=== PATIENT | male | born 1955 | race Caucasian/White ===

== ENCOUNTER 2019-10-10 10:30 | Emergency (ER) | payer MEDICARE, OTHER ==
--- NOTE | 2019-10-10 11:31 | EDM.PDOC ---
ED HPI GENERAL MEDICAL PROBLEM - General Chief Complaint: General Stated Complaint: NOT FEELING WELL Time Seen by Provider: 10/10/19 10:50 Source of Information: Reports: Patient History Limitations: Reports: No Limitations - History of Present Illness INITIAL COMMENTS - FREE TEXT/NARRATIVE: pt presents to the ED with history of cramping in his hands, feet, legs over the past several weeks he's noticed more during the evening. pt states he takes an extra potassium pill and symptoms improve. also history of intermittent lightheadedness the past 2-3 nights, worsening with position changes and improving with rest coinciding pedal edema worsening through the day and improving at night. pt denies SOB, fever, chills, cough, chest pain, vision changes. - Related Data Allergies Allergy/AdvReac Type Severity Reaction Status Date / Time acetaminophen Allergy Cannot Verified 10/10/19 11:05 [From Darvocet-N] Remember ciprofloxacin Allergy Cannot Verified 10/10/19 11:05 Remember erythromycin base Allergy Cannot Verified 10/10/19 11:05 Remember morphine Allergy Cannot Verified 10/10/19 11:05 Remember naproxen [From Naprosyn] Allergy Cannot Verified 10/10/19 11:05 Remember Penicillins Allergy Cannot Verified 10/10/19 11:05 Remember propoxyphene Allergy Cannot Verified 10/10/19 11:05 [From Darvocet-N] Remember Home Meds: Home Meds Albuterol [Ventolin HFA] 2 puff IH Q6HR PRN 10/10/19 [History] Aspirin 81 mg PO BEDTIME 10/10/19 [History] Chlorthalidone 25 mg PO DAILY 10/10/19 [History] Diltiazem HCl [Diltiazem 24Hr Cd] 120 mg PO DAILY 10/10/19 [History] Docusate Sodium [Colace] 100 mg PO BID PRN 10/10/19 [History] Isosorbide Mononitrate [Isosorbide Mononitrate ER] 30 mg PO DAILY 10/10/19 [ History] Omeprazole 40 mg PO DAILY 10/10/19 [History] Potassium Citrate [Potassium Citrate ER] 20 meq PO DAILY 10/10/19 [History] Simvastatin 20 mg PO BEDTIME 10/10/19 [History] Terazosin [Hytrin] 5 mg PO BEDTIME 10/10/19 [History] diphenhydrAMINE [Benadryl] 25 mg PO Q6H PRN 10/10/19 [History] hydrALAZINE [Apresoline] 10 mg PO Q8H 10/10/19 [History] Past Medical History HEENT History: Reports: Hard of Hearing Cardiovascular History: Reports: High Cholesterol, Hypertension Other Cardiovascular History: single cardiac stent about 5 years ago Respiratory History: Reports: Asthma Gastrointestinal History: Reports: GERD Social & Family History - Family History Family Medical History: Noncontributory - Tobacco Use Smoking Status *Q: Never Smoker Second Hand Smoke Exposure: No - Caffeine Use Caffeine Use: Reports: Coffee - Recreational Drug Use Recreational Drug Use: No ED ROS GENERAL - Review of Systems Review Of Systems: See Below (complete ROS performed and negative except as noted above) ED EXAM, GENERAL - Physical Exam Exam: See Below Exam Limited By: No Limitations General Appearance: Alert, WD/WN, No Apparent Distress Eye Exam: Bilateral Eye: EOMI, PERRL Ears: Normal External Exam Head: Atraumatic, Normocephalic Neck: Non-Tender, Full Range of Motion Respiratory/Chest: No Respiratory Distress, Lungs Clear, Normal Breath Sounds, No Accessory Muscle Use Cardiovascular: Normal Peripheral Pulses, Regular Rate, Rhythm, No JVD, No Murmur, No Rub, Other (pedal edema +2) Peripheral Pulses: 2+: Radial (L), Radial (R), Posterior Tibial (L), Posterior Tibial (R) Extremities: Normal Inspection, Non-Tender Neurological: Alert, Oriented, CN II-XII Intact, Normal Cognition, Normal Gait Psychiatric: Normal Affect, Normal Mood Skin Exam: Warm, Dry, Intact EKG INTERPRETATION EKG Date: 10/10/19 Time: 11:26 Rhythm: NSR [place]: Normal P-Wave: Present QRS: Normal ST-T: Normal QT: Normal EKG Interpretation Comments: no q wave or delta waves noted Course - Vital Signs Last Recorded V/S: Last Vital Signs Temp 98.3 F 10/10/19 10:50 Pulse 71 10/10/19 10:50 Resp 16 10/10/19 10:50 BP 128/83 10/10/19 10:50 Pulse Ox 97 10/10/19 10:50 - Orders/Labs/Meds Orders: Active Orders 24 hr Category Date Time Status EKG Documentation Completion [RC] ASDIRECTED Care 10/10/19 11:22 Active Labs: Laboratory Tests 10/10/19 10/10/19 Range/Units 11:40 11:50 WBC 7.1 (4.0-11.0) K/uL RBC 4.28 L (4.50-6.50) M/uL Hgb 14.3 (13.0-18.0) g/dL Hct 39.8 L (40.0-54.0) % MCV 93 (76-96) fL MCH 33.4 H (27.0-32.0) pg MCHC 35.9 H (31.0-35.0) g/dL RDW 13.3 (11.0-16.0) % Plt Count 256 (150-400) K/uL MPV 10.8 H (6.0-10.0) fL Neut % (Auto) 75.7 H (45.0-70.0) % Lymph % (Auto) 11.6 L (20.0-40.0) % [place] % (Auto) 10.5 H (3.0-10.0) % Eos % (Auto) 1.4 (1.0-5.0) % Baso % (Auto) 0.8 H (0.0-0.5) % Neut # (Auto) 5.36 (2.00-7.50) K/uL Lymph # (Auto) 0.82 L (1.50-4.00) K/uL [place] # (Auto) 0.74 (0.20-0.80) K/uL Eos # (Auto) 0.10 (0.04-0.40) K/uL Baso # (Auto) 0.06 (0.02-0.10) K/uL Sodium 141 (136-145) mmol/L Potassium 3.2 L (3.5-5.1) mmol/L Chloride 103 (98-107) mmol/L Carbon Dioxide 29.2 (21.0-32.0) mmol/L Anion Gap 12.0 (5.0-15.0) mmol/L BUN 20 (8-26) mg/dL Creatinine 1.21 (0.70-1.30) mg/dL Est Cr Clr Drug Dosing 66.80 mL/min Estimated GFR (MDRD) > 60 (>60) MLS/MIN BUN/Creatinine Ratio 16.5 (6-25) Glucose 115 H (74-100) mg/dL Calcium 7.9 L (8.5-10.1) mg/dL Total Bilirubin 0.3 (0.0-1.0) mg/dL AST 23 (15-37) U/L ALT 39 (12-78) U/L Alkaline Phosphatase 95 (46-116) U/L Total Protein 7.0 (6.4-8.2) g/dL Albumin 3.6 (3.4-5.0) g/dL Globulin 3.4 (2.2-4.2) g/dL Albumin/Globulin Ratio 1.1 (0.8-2.0) Departure - Departure Time of Disposition: 12:45 Disposition: Home, Self-Care 01 Condition: Good Clinical Impression: Hypokalemia, Postural hypotension - Discharge Information *PRESCRIPTION DRUG MONITORING PROGRAM REVIEWED*: Not Applicable *COPY OF PRESCRIPTION DRUG MONITORING REPORT IN PATIENT EITAN: Not Applicable Instructions: Hypokalemia Referrals: PCP,None [Primary Care Provider] - Forms: ED Department Discharge Additional Instructions: increase your potassium to 20mEq twice daily follow up with your regular doctor as soon as possible for a blood pressure recheck and further recommendations whether to reduce other blood pressure medications. Sepsis Event Note (ED) - Evaluation Sepsis Screening Result: No Definite Risk - Focused Exam Vital Signs: Vital Signs Temp Pulse Resp BP Pulse Ox 10/10/19 10:50 98.3 F 71 16 128/83 97 - My Orders Last 24 Hours: My Active Orders 10/10/19 11:22 EKG Documentation Completion [RC] ASDIRECTED - Assessment/Plan Last 24 Hours: My Active Orders 10/10/19 11:22 EKG Documentation Completion [RC] ASDIRECTED Assessment:: hypokalemia postural hypotension Plan: double current potassium from 20mEq qd to 20mEq BID position changes from lying to sitting and sitting to standing need to be over 1 -2 minutes to reduce symptoms. pt will call PCP and request review of current b/p meds for appropriateness considering current symptoms and control of his b/p.
== END 2019-10-10 12:43 | disposition home or self-care (01) ==
LOC: LB.ED 10:30
DX: E87.6 Hypokalemia (principal); I95.1 Orthostatic hypotension; E78.00 Pure hypercholesterolemia, unspecified; I10 Essential (primary) hypertension; J45.909 Unspecified asthma, uncomplicated; K21.9 Gastro-esophageal reflux disease without esophagitis; Z88.6 Allergy status to analgesic agent; Z88.1 Allergy status to other antibiotic agents; Z88.5 Allergy status to narcotic agent; Z88.0 Allergy status to penicillin; Z79.899 Other long term (current) drug therapy
CPT/HCPCS: 36415; 80053; 85025; 93005; 99283-25

== ENCOUNTER 2020-02-08 23:42 | Emergency (ER) | payer MEDICARE ==
[2020-02-09 00:01] VITALS: BP 134/56; PULSE 68
[2020-02-09] MEDS: Ketorolac 60 MG/2 ML SDV IM ONE (00:59)
--- NOTE | 2020-02-09 01:08 | EDM.PDOC ---
ED HPI GENERAL MEDICAL PROBLEM - General Chief Complaint: Lower Extremity Injury/Pain Stated Complaint: Ankle Injury Time Seen by Provider: 02/09/20 00:30 Source of Information: Reports: Patient, Family History Limitations: Reports: No Limitations - History of Present Illness INITIAL COMMENTS - FREE TEXT/NARRATIVE: Patient is a 64 y/o male who presents with right lateral ankle that happened suddenly while he was walking. He states he heard a "pop" and had difficulty ambulating or bearing weight. NO fall and no numbness/tingling. Right Ankle Pain Score (Numeric/FACES): 7 - Related Data Allergies Allergy/AdvReac Type Severity Reaction Status Date / Time acetaminophen Allergy Cannot Verified 02/08/20 23:53 [From Darvocet-N] Remember ciprofloxacin Allergy Cannot Verified 02/08/20 23:53 Remember erythromycin base Allergy Cannot Verified 02/08/20 23:53 Remember morphine Allergy Cannot Verified 02/08/20 23:53 Remember naproxen [From Naprosyn] Allergy Cannot Verified 02/08/20 23:53 Remember Penicillins Allergy Cannot Verified 02/08/20 23:53 Remember propoxyphene Allergy Cannot Verified 02/08/20 23:53 [From Darvocet-N] Remember Home Meds: Home Meds Albuterol [Ventolin HFA] 2 puff IH Q6HR PRN 10/10/19 [History] Aspirin 81 mg PO BEDTIME 10/10/19 [History] Chlorthalidone 25 mg PO DAILY 10/10/19 [History] Diltiazem HCl [Diltiazem 24Hr Cd] 120 mg PO DAILY 10/10/19 [History] Docusate Sodium [Colace] 100 mg PO BID PRN 10/10/19 [History] Isosorbide Mononitrate [Isosorbide Mononitrate ER] 30 mg PO DAILY 10/10/19 [History] Omeprazole 40 mg PO DAILY 10/10/19 [History] Potassium Citrate [Potassium Citrate ER] 20 meq PO DAILY 10/10/19 [History] Simvastatin 20 mg PO BEDTIME 10/10/19 [History] Terazosin [Hytrin] 5 mg PO BEDTIME 10/10/19 [History] diphenhydrAMINE [Benadryl] 25 mg PO Q6H PRN 10/10/19 [History] hydrALAZINE [Apresoline] 10 mg PO Q8H 10/10/19 [History] Past Medical History HEENT History: Reports: Hard of Hearing Cardiovascular History: Reports: High Cholesterol, Hypertension Other Cardiovascular History: single cardiac stent about 5 years ago Respiratory History: Reports: Asthma Gastrointestinal History: Reports: GERD Musculoskeletal History: Reports: Other (See Below) - Past Surgical History Musculoskeletal Surgical History: Reports: Knee Replacement Social & Family History - Family History Family Medical History: Noncontributory - Caffeine Use Caffeine Use: Reports: Coffee - Recreational Drug Use Recreational Drug Use: No Drug Use in Last 12 Months: No Review of Systems - Review of Systems Review Of Systems: See Below Constitutional: Reports: No Symptoms Musculoskeletal: Reports: Joint Pain, Joint Swelling Skin: Reports: No Symptoms Neurological: Reports: No Symptoms ED EXAM, GENERAL - Physical Exam Exam: See Below Exam Limited By: No Limitations General Appearance: Alert, No Apparent Distress, Obese Extremities: Limited Range of Motion, Other (right lateral malleolus swelling; non-tender; limited range of motion due to pain) Neurological: Alert, Oriented, No Motor/Sensory Deficits Skin Exam: Warm, Dry, Intact, Normal Color, No Rash Course - Vital Signs Text/Narrative:: No fracture seen on Xray. Patient given toradol 60 mg IM, boot, and crutches. Follow up with Ortho in 1-2 weeks. Last Recorded V/S: Last Vital Signs Temp 35.9 C L 02/08/20 23:53 Pulse 68 02/08/20 23:53 Resp 20 02/08/20 23:53 BP 134/56 L 02/08/20 23:53 Pulse Ox 98 02/08/20 23:53 - Orders/Labs/Meds Orders: Active Orders 24 hr Category Date Time Status Ankle Min 3V Rt [CR] Stat Exams 02/09/20 00:12 Taken Meds: Medications Discontinued Medications Generic Name Dose Route Start Last Admin Trade Name Freq PRN Reason Stop Dose Admin Ketorolac Tromethamine 60 mg 02/09/20 00:56 02/09/20 00:59 Toradol IM 02/09/20 00:57 60 mg ONETIME ONE Administration Departure - Departure Time of Disposition: 13:10 Disposition: Home, Self-Care 01 Condition: Good Clinical Impression: Right ankle sprain Qualifiers: Encounter type: initial encounter Involved ligament of ankle: unspecified ligament Qualified Code(s): S93.401A - Sprain of unspecified ligament of right ankle, initial encounter - Discharge Information *PRESCRIPTION DRUG MONITORING PROGRAM REVIEWED*: Not Applicable *COPY OF PRESCRIPTION DRUG MONITORING REPORT IN PATIENT EITAN: Not Applicable Instructions: Ankle Sprain, [id number] Sepsis Event Note (ED) - Evaluation Sepsis Screening Result: No Definite Risk - Focused Exam Vital Signs: Vital Signs Temp Pulse Resp BP Pulse Ox 02/08/20 23:53 35.9 C L 68 20 134/56 L 98 - My Orders Last 24 Hours: My Active Orders 02/09/20 00:12 Ankle Min 3V Rt [CR] Stat - Assessment/Plan Last 24 Hours: My Active Orders 02/09/20 00:12 Ankle Min 3V Rt [CR] Stat
--- NOTE | 2020-02-09 14:44 | CR ---
CLINICAL DATA: Ankle injury. RIGHT ANKLE, 09 FEBRUARY 2020: There is mild soft tissue swelling adjacent to the ankle joint. No acute fracture or dislocation. No lytic or blastic bone lesions. 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 There are plantar and posterior calcaneal spurs. Job: [id number] [facility]
== END 2020-02-09 01:40 | disposition home or self-care (01) ==
LOC: LB.ED 23:42
DX: S93.401A Sprain of unspecified ligament of right ankle, initial encounter (principal); I10 Essential (primary) hypertension; E78.00 Pure hypercholesterolemia, unspecified; J45.909 Unspecified asthma, uncomplicated; K21.9 Gastro-esophageal reflux disease without esophagitis; Z88.8 Allergy status to other drugs, medicaments and biological substances; Z88.6 Allergy status to analgesic agent; Z88.1 Allergy status to other antibiotic agents; Z88.5 Allergy status to narcotic agent; Z88.0 Allergy status to penicillin; Z79.82 Long term (current) use of aspirin; Z79.899 Other long term (current) drug therapy; X58.XXXA Exposure to other specified factors, initial encounter; Y93.01 Activity, walking, marching and hiking
CPT/HCPCS: 73610-RT; 96372; 99283; J1885

== ENCOUNTER 2020-03-21 17:50 | Emergency (ER) | payer MEDICARE ==
[2020-03-21] MEDS ORDERED: Cyclobenzaprine 10 MG Tab ONE (18:30)
--- NOTE | 2020-03-21 18:43 | EDM.PDOC ---
ED HPI GENERAL MEDICAL PROBLEM - General Chief Complaint: General Stated Complaint: LEFT HIP PAIN Time Seen by Provider: 03/21/20 18:10 Source of Information: Reports: Patient History Limitations: Reports: No Limitations - History of Present Illness INITIAL COMMENTS - FREE TEXT/NARRATIVE: pt presents to the ER with left hip pain that has been ongoing for the past week. pt states pain feels like "a tightness and a sharpness" from his left hip that radaites down towards his knee. pain improves with walking most of the times, but sometimes worsens with certain activities. also worsens with standing still or walking slowly for prolonged periods. pt denies numbness, fever, loss of ROM. pain worsens with deep palpation of left hip as well as palpation of his lateral quadracepts muscle. pt has not established care since moving to area. pain is not constant, he denies swelling of his leg, and pain is not worse or better at any certain time of day. Onset: Gradual Treatments [employer]: Reports: Acetaminophen (which sometimes work. pt states allergies to NSAIDS) Left Hip Pain Score (Numeric/FACES): 7 - Related Data Allergies Allergy/AdvReac Type Severity Reaction Status Date / Time acetaminophen Allergy Cannot Verified 02/08/20 23:53 [From Darvocet-N] Remember ciprofloxacin Allergy Cannot Verified 02/08/20 23:53 Remember erythromycin base Allergy Cannot Verified 02/08/20 23:53 Remember morphine Allergy Cannot Verified 02/08/20 23:53 Remember naproxen [From Naprosyn] Allergy Cannot Verified 02/08/20 23:53 Remember Penicillins Allergy Cannot Verified 02/08/20 23:53 Remember propoxyphene Allergy Cannot Verified 02/08/20 23:53 [From Darvocet-N] Remember Home Meds: Home Meds Albuterol [Ventolin HFA] 2 puff IH Q6HR PRN 10/10/19 [History] Aspirin 81 mg PO BEDTIME 10/10/19 [History] Chlorthalidone 25 mg PO DAILY 10/10/19 [History] Diltiazem HCl [Diltiazem 24Hr Cd] 120 mg PO DAILY 10/10/19 [History] Docusate Sodium [Colace] 100 mg PO BID PRN 10/10/19 [History] Isosorbide Mononitrate [Isosorbide Mononitrate ER] 30 mg PO DAILY 10/10/19 [History] Omeprazole 40 mg PO DAILY 10/10/19 [History] Potassium Citrate [Potassium Citrate ER] 20 meq PO DAILY 10/10/19 [History] Simvastatin 20 mg PO BEDTIME 10/10/19 [History] Terazosin [Hytrin] 5 mg PO BEDTIME 10/10/19 [History] diphenhydrAMINE [Benadryl] 25 mg PO Q6H PRN 10/10/19 [History] hydrALAZINE [Apresoline] 10 mg PO Q8H 10/10/19 [History] Past Medical History HEENT History: Reports: Hard of Hearing Cardiovascular History: Reports: High Cholesterol, Hypertension Other Cardiovascular History: single cardiac stent about 5 years ago Respiratory History: Reports: Asthma Gastrointestinal History: Reports: GERD Musculoskeletal History: Reports: Other (See Below) - Past Surgical History Musculoskeletal Surgical History: Reports: Knee Replacement Social & Family History - Family History Family Medical History: No Pertinent Family History - Caffeine Use Caffeine Use: Reports: Coffee - Recreational Drug Use Recreational Drug Use: No ED ROS GENERAL - Review of Systems Review Of Systems: Comprehensive ROS is negative, except as noted in HPI. ED EXAM, GENERAL - Physical Exam Exam: See Below Exam Limited By: No Limitations General Appearance: Alert, WD/WN, No Apparent Distress Respiratory/Chest: No Respiratory Distress, Normal Breath Sounds, No Accessory Muscle Use Peripheral Pulses: 2+: Radial (L), Radial (R), Posterior Tibial (L), Posterior Tibial (R) Back Exam: Normal Inspection, Full Range of Motion Extremities: Normal Range of Motion, No Pedal Edema (TTP of lateral left hip, tenderness follows to left lateral quadracepts to distal femur. ) Neurological: Alert, Oriented, Normal Cognition, Normal Reflexes, No Motor/Sensory Deficits, Abnormal Gait (abnormal gait initially, after 2-3 strides, gait normalizes and is steady.) Psychiatric: Normal Affect, Normal Mood Skin Exam: Warm, Dry, Intact, Normal Color, No Rash Course - Vital Signs Last Recorded V/S: Last Vital Signs Temp 97.3 F 03/21/20 18:09 Pulse 66 03/21/20 18:09 Resp 18 03/21/20 18:09 BP 148/74 H 03/21/20 18:09 Pulse Ox 97 03/21/20 18:09 Departure - Departure Time of Disposition: 18:47 Disposition: Home, Self-Care 01 Condition: Good Clinical Impression: Muscle spasm of left lower extremity - Discharge Information *PRESCRIPTION DRUG MONITORING PROGRAM REVIEWED*: Not Applicable *COPY OF PRESCRIPTION DRUG MONITORING REPORT IN PATIENT EITAN: Not Applicable Instructions: Hip Exercises-SportsMed, Hip Pain Forms: ED Department Discharge Additional Instructions: Discharge home. Work on stretching the hips as discussed in the ER. Take more frequent breaks, walking. Flexeril 10mg 1 tablet by mouth 3 times a day for hip spasms. Take when not driving. Tylenol 1000mg by mouth 4 times a day for pain. Increase fruits and vegetables. Increase fluids, low sugar Gatorade. Follow up with primary provider as soon as possible. Sepsis Event Note (ED) - Evaluation Sepsis Screening Result: No Definite Risk - Focused Exam Vital Signs: Vital Signs Temp Pulse Resp BP Pulse Ox 03/21/20 18:09 97.3 F 66 18 148/74 H 97 - Problem List & Annotations (1) Muscle spasm of left lower extremity SNOMED Code(s): 99832032, [id number] Code(s): M62.838 - OTHER MUSCLE SPASM Status: Acute - Problem List Review Problem List Initiated/Reviewed/Updated: Yes - Assessment/Plan Assessment:: assessment: muscle spasm of left lower extremity. plan: tylenol 1000mg qid, continue home remedies of analgesic creams, stretch often as discussed, walk as often as you are able, take flexeril as prescribed a nd stretch. do not take this medication if you have to work, operate heavy machinery. follow up in clinic [facility] to establish care. differentials considered: bursitis, rheumatoid arthritis, DVT.
== END 2020-03-21 18:40 | disposition home or self-care (01) ==
LOC: LB.ED 17:50
DX: M62.838 Other muscle spasm (principal); I10 Essential (primary) hypertension; E78.00 Pure hypercholesterolemia, unspecified; J45.909 Unspecified asthma, uncomplicated; K21.9 Gastro-esophageal reflux disease without esophagitis; Z88.8 Allergy status to other drugs, medicaments and biological substances; Z88.5 Allergy status to narcotic agent; Z88.0 Allergy status to penicillin; Z88.6 Allergy status to analgesic agent; Z88.1 Allergy status to other antibiotic agents; Z79.82 Long term (current) use of aspirin; Z79.899 Other long term (current) drug therapy
CPT/HCPCS: 99283; A9270-GY

== ENCOUNTER 2020-09-19 21:21 | Emergency (ER) | payer MEDICARE ==
[2020-09-19] MEDS ORDERED: metroNIDAZOLE 500 MG Tab ONE (21:30)
--- NOTE | 2020-09-19 22:45 | EDM.PDOC ---
ED HPI GENERAL MEDICAL PROBLEM - General Chief Complaint: Abdominal Pain Stated Complaint: dizziness Time Seen by Provider: 09/19/20 22:10 Source of Information: Reports: Patient, Family History Limitations: Reports: No Limitations - History of Present Illness INITIAL COMMENTS - FREE TEXT/NARRATIVE: patient presented to the ER with a c/o abdominal pain for the last 2 weeks that got worse 3-4 days ago. Upper abdomen and to the right. not related to food, but worse with movement. no nausea or emesis. Reports changes in his BM - used to be loose stool but over the last 2 days to became normal. Reports that he is on omeprazole and Pepto bismuth - but it's not helping. Had a colonoscopy done 4-5 years ago that showed e/o UC and polyps. Denies blood in the stool. No fever or chills. no change in appetite or weight. Last EGD was 5-6 years ago. Patient reports his pain as 5-6 most of the times, but jumps to 10 when he moves. no h/o abdominal surgeries Onset: Gradual Duration: Week(s): (4) Location: Reports: Abdomen Quality: Reports: Ache, Dull Improves with: Reports: None Worsens with: Reports: Movement Associated Symptoms: Reports: No Other Symptoms Upper Abdomen Pain Score (Numeric/FACES): 5 - Related Data Allergies Allergy/AdvReac Type Severity Reaction Status Date / Time acetaminophen Allergy Cannot Verified 02/08/20 23:53 [From Darvocet-N] Remember ciprofloxacin Allergy Cannot Verified 02/08/20 23:53 Remember erythromycin base Allergy Cannot Verified 02/08/20 23:53 Remember morphine Allergy Cannot Verified 02/08/20 23:53 Remember naproxen [From Naprosyn] Allergy Cannot Verified 02/08/20 23:53 Remember Penicillins Allergy Cannot Verified 02/08/20 23:53 Remember propoxyphene Allergy Cannot Verified 02/08/20 23:53 [From Darvocet-N] Remember Home Meds: Home Meds Albuterol [Ventolin HFA] 2 puff IH Q6HR PRN 10/10/19 [History] Aspirin 81 mg PO BEDTIME 10/10/19 [History] Chlorthalidone 25 mg PO DAILY 10/10/19 [History] Diltiazem HCl [Diltiazem 24Hr Cd] 120 mg PO DAILY 10/10/19 [History] Docusate Sodium [Colace] 100 mg PO BID PRN 10/10/19 [History] Isosorbide Mononitrate [Isosorbide Mononitrate ER] 30 mg PO DAILY 10/10/19 [History] Omeprazole 40 mg PO DAILY 10/10/19 [History] Potassium Citrate [Potassium Citrate ER] 20 meq PO DAILY 10/10/19 [History] Simvastatin 20 mg PO BEDTIME 10/10/19 [History] Terazosin [Hytrin] 5 mg PO BEDTIME 10/10/19 [History] diphenhydrAMINE [Benadryl] 25 mg PO Q6H PRN 10/10/19 [History] hydrALAZINE [Apresoline] 10 mg PO Q8H 10/10/19 [History] metroNIDAZOLE [Flagyl] 500 mg PO Q12H #10 tab 09/20/20 [Rx] Past Medical History HEENT History: Reports: Hard of Hearing Cardiovascular History: Reports: High Cholesterol, Hypertension Other Cardiovascular History: single cardiac stent about 5 years ago Respiratory History: Reports: Asthma Gastrointestinal History: Reports: GERD Musculoskeletal History: Reports: Other (See Below) - Past Surgical History Musculoskeletal Surgical History: Reports: Knee Replacement Social & Family History - Family History Family Medical History: No Pertinent Family History - Caffeine Use Caffeine Use: Reports: Coffee ED ROS GENERAL - Review of Systems Review Of Systems: See Below Constitutional: Reports: No Symptoms HEENT: Reports: No Symptoms Respiratory: Reports: No Symptoms Cardiovascular: Reports: No Symptoms GI/Abdominal: Reports: Abdominal Pain : Reports: No Symptoms Musculoskeletal: Reports: Back Pain Skin: Reports: No Symptoms Neurological: Reports: No Symptoms ED EXAM, GI/ABD - Physical Exam Exam: See Below Exam Limited By: No Limitations General Appearance: Alert, WD/WN, No Apparent Distress Eyes: Bilateral: EOMI Head: Atraumatic Neck: Normal Inspection Respiratory/Chest: No Respiratory Distress, Lungs Clear Cardiovascular: Normal Peripheral Pulses, Regular Rate, Rhythm GI/Abdominal Exam: Normal Bowel Sounds, Soft, Tender (epigastric and RUQ), Other (obese) Back Exam: Normal Inspection Extremities: Normal Inspection, Normal Range of Motion Neurological: Alert, Oriented, CN II-XII Intact Psychiatric: Normal Affect #1 Interpretation Rhythm: NSR Rate (Beats/Min): 57 [place]: Normal P-Wave: Present QRS: Normal ST-T: Normal QT: Normal Course - Vital Signs Last Recorded V/S: Last Vital Signs Temp 36.3 C 09/19/20 22:25 Pulse 63 09/19/20 22:25 Resp 20 09/19/20 22:25 BP 154/74 H 09/19/20 22:25 Pulse Ox 95 09/19/20 22:25 - Orders/Labs/Meds Orders: Active Orders 24 hr Category Date Time Status EKG Documentation Completion [RC] ASDIRECTED Care 09/19/20 21:44 Active Abdomen Pelvis wo Cont [CT] Stat Exams 09/19/20 22:39 Ordered Labs: Laboratory Tests 09/19/20 09/19/20 09/19/20 Range/Units 22:00 22:00 22:00 WBC 8.5 (4.0-11.0) K/uL RBC 3.94 L (4.50-6.50) M/uL Hgb 13.0 (13.0-18.0) g/dL Hct 37.2 L (40.0-54.0) % MCV 94 (76-96) fL MCH 33.0 H (27.0-32.0) pg MCHC 34.9 (31.0-35.0) g/dL RDW 13.0 (11.0-16.0) % Plt Count 225 (150-400) K/uL MPV 11.2 H (6.0-10.0) fL Neut % (Auto) 74.3 H (45.0-70.0) % Lymph % (Auto) 13.0 L (20.0-40.0) % [place] % (Auto) 10.8 H (3.0-10.0) % Eos % (Auto) 1.3 (1.0-5.0) % Baso % (Auto) 0.6 H (0.0-0.5) % Neut # (Auto) 6.29 (2.00-7.50) K/uL Lymph # (Auto) 1.10 L (1.50-4.00) K/uL Gregg # (Auto) 0.91 H (0.20-0.80) K/uL Eos # (Auto) 0.11 (0.04-0.40) K/uL Baso # (Auto) 0.05 (0.02-0.10) K/uL Sodium 145 (136-145) mmol/L Potassium 3.2 L (3.5-5.1) mmol/L Chloride 106 (98-107) mmol/L Carbon Dioxide 27.8 (21.0-32.0) mmol/L Anion Gap 14.4 (5.0-15.0) mmol/L BUN 20 (8-26) mg/dL Creatinine 1.58 H D (0.70-1.30) mg/dL Est Cr Clr Drug Dosing 50.48 mL/min Estimated GFR (MDRD) 44 L (>60) MLS/MIN BUN/Creatinine Ratio 12.7 (6-25) Glucose 110 H (74-100) mg/dL Calcium 7.8 L (8.5-10.1) mg/dL Total Bilirubin 0.4 (0.0-1.0) mg/dL AST 26 (15-37) U/L ALT 42 (12-78) U/L Alkaline Phosphatase 96 (46-116) U/L Troponin I < 0.017 (0.000-0.060) ng/mL B-Natriuretic Peptide 147 H (0-125) pg/mL Total Protein 6.5 (6.4-8.2) g/dL Albumin 3.4 (3.4-5.0) g/dL Globulin 3.1 (2.2-4.2) g/dL Albumin/Globulin Ratio 1.1 (0.8-2.0) Lipase 136 (73-393) U/L Urine Color Urine Appearance (CLEAR) Urine pH (5.0-8.0) Ur Specific [place] (1.003-1.030) Urine Protein (NEGATIVE) mg/dL Urine Glucose (UA) (NEGATIVE) mg/dL Urine Ketones (NEGATIVE) mg/dL Urine Occult Blood (NEGATIVE) Urine Nitrite (NEGATIVE) Urine Bilirubin (NEGATIVE) Urine Urobilinogen (0.2-1.0) E.U./dL Ur Leukocyte Esterase (NEGATIVE) Urine RBC /HPF Urine WBC /HPF Ur Squamous Epith Cells /HPF 09/19/20 Range/Units 22:04 WBC (4.0-11.0) K/uL RBC (4.50-6.50) M/uL Hgb (13.0-18.0) g/dL Hct (40.0-54.0) % MCV (76-96) fL MCH (27.0-32.0) pg MCHC (31.0-35.0) g/dL RDW (11.0-16.0) % Plt Count (150-400) K/uL MPV (6.0-10.0) fL Neut % (Auto) (45.0-70.0) % Lymph % (Auto) (20.0-40.0) % [place] % (Auto) (3.0-10.0) % Eos % (Auto) (1.0-5.0) % Baso % (Auto) (0.0-0.5) % Neut # (Auto) (2.00-7.50) K/uL Lymph # (Auto) (1.50-4.00) K/uL [place] # (Auto) (0.20-0.80) K/uL Eos # (Auto) (0.04-0.40) K/uL Baso # (Auto) (0.02-0.10) K/uL Sodium (136-145) mmol/L Potassium (3.5-5.1) mmol/L Chloride (98-107) mmol/L Carbon Dioxide (21.0-32.0) mmol/L Anion Gap (5.0-15.0) mmol/L BUN (8-26) mg/dL Creatinine (0.70-1.30) mg/dL Est Cr Clr Drug Dosing mL/min Estimated GFR (MDRD) (>60) MLS/MIN BUN/Creatinine Ratio (6-25) Glucose (74-100) mg/dL Calcium (8.5-10.1) mg/dL Total Bilirubin (0.0-1.0) mg/dL AST (15-37) U/L ALT (12-78) U/L Alkaline Phosphatase (46-116) U/L Troponin I (0.000-0.060) ng/mL B-Natriuretic Peptide (0-125) pg/mL Total Protein (6.4-8.2) g/dL Albumin (3.4-5.0) g/dL Globulin (2.2-4.2) g/dL Albumin/Globulin Ratio (0.8-2.0) Lipase (73-393) U/L Urine Color Yellow Urine Appearance Clear (CLEAR) Urine pH 6.0 (5.0-8.0) Ur Specific [place] >= 1.030 (1.003-1.030) Urine Protein 30 H (NEGATIVE) mg/dL Urine Glucose (UA) Negative (NEGATIVE) mg/dL Urine Ketones Negative (NEGATIVE) mg/dL Urine Occult Blood Negative (NEGATIVE) Urine Nitrite Negative (NEGATIVE) Urine Bilirubin Negative (NEGATIVE) Urine Urobilinogen 1.0 (0.2-1.0) E.U./dL Ur Leukocyte Esterase Negative (NEGATIVE) Urine RBC Not seen /HPF Urine WBC Not seen /HPF Ur Squamous Epith Cells Few /HPF Meds: Medications Discontinued Medications Generic Name Dose Route Start Last Admin Trade Name Bassam PRN Reason Stop Dose Admin Sodium Chloride 1,000 mls @ 999 mls/hr 09/19/20 22:39 09/19/20 23:04 Normal Saline IV 09/19/20 23:39 999 mls/hr .BOLUS ONE Administration Metronidazole Confirm 09/20/20 00:13 Metronidazole 500 Mg Tab Administered 09/20/20 00:14 Dose 2,000 mg .ROUTE .STK-MED ONE - Re-Assessments/Exams Free Text/Narrative Re-Assessment/Exam: 09/19/20 22:45 vitals - no fever or tachycardia labs were ordered - including CBC, CMP, TROP, lipase and UA. Significant for elevation in Cr which is new - last Cr was normal 2 weeks ago. IVF was given CT abd/pelv was ordered - final read pending - but no e/o acute pathology on prelim read. no SBO. Departure - Departure Time of Disposition: 00:11 Disposition: Home, Self-Care 01 Condition: Good Clinical Impression: Hypokalemia, Abdominal pain - Discharge Information *PRESCRIPTION DRUG MONITORING PROGRAM REVIEWED*: Not Applicable *COPY OF PRESCRIPTION DRUG MONITORING REPORT IN PATIENT EITAN: Not Applicable Prescriptions: metroNIDAZOLE [Flagyl] 500 mg PO Q12H #10 tab Instructions: Abdominal or Pelvic Ultrasound, Metronidazole tablets or capsules Referrals: PCP,None [Primary Care Provider] - Forms: ED Department Discharge, ED Return to Work/School Form Additional Instructions: Followup in the clinic next week to followup with the kidney function results. You will be called with the ultrasound appt for . Flagyl 7 days daily and eat yogurt but make sure there is at least 6 days a week. Sepsis Event Note (ED) - Evaluation Sepsis Screening Result: No Definite Risk - Focused Exam Vital Signs: Vital Signs Temp Pulse Resp BP Pulse Ox 09/19/20 22:25 36.3 C 63 20 154/74 H 95 - Problem List & Annotations (1) Abdominal pain SNOMED Code(s): 61255979 Code(s): R10.9 - UNSPECIFIED ABDOMINAL PAIN Status: Acute Priority: Low Current Visit: Yes Qualifiers: Abdominal location: right upper quadrant Qualified Code(s): R10.11 - Right upper quadrant pain (2) Hypokalemia SNOMED Code(s): 99360308 Code(s): E87.6 - HYPOKALEMIA Status: Acute Priority: Low Current Visit: Yes (3) GILMAR (acute kidney injury) SNOMED Code(s): 58629143, 06666498 Code(s): N17.9 - ACUTE KIDNEY FAILURE, UNSPECIFIED Status: Acute Priority: Low Current Visit: Yes - Problem List Review Problem List Initiated/Reviewed/Updated: Yes - My Orders Last 24 Hours: My Active Orders 09/19/20 21:44 EKG Documentation Completion [RC] ASDIRECTED 09/19/20 22:39 Abdomen Pelvis wo Cont [CT] Stat - Assessment/Plan Last 24 Hours: My Active Orders 09/19/20 21:44 EKG Documentation Completion [RC] ASDIRECTED 09/19/20 22:39 Abdomen Pelvis wo Cont [CT] Stat Plan: - return on for US abdomen - start taking flagyl BID for 7 days - increase fluids intake - repeat labs next to check on kidney function
[2020-09-19] MEDS: Sodium Chloride 0.9% 1,000 ML IV ONE (23:04)
[2020-09-20] MEDS ORDERED: metroNIDAZOLE 500 MG Tab ONE (00:13)
--- NOTE | 2020-09-22 09:37 | CT ---
Date of Service: 09/19/20 Clinical Data: RUQ pain UNENHANCED ABDOMEN AND PELVIC CT: Multislice acquisition through the abdomen and pelvis without IV or oral contrast was performed. No priors. There are minimal atelectatic changes noted in both lung bases. The lung bases are otherwise clear. The heart size is normal. There is a small pericardial effusion. The unenhanced liver appears normal. The gallbladder appears normal. The spleen appears normal. The pancreas appears normal. The right adrenal appears normal. There is a 3.2 cm low density lesion in the left adrenal which is most likely benign. No nephrocalcinosis or nephrolithiasis. No hydronephrosis or hydroureter. There is mild perinephric fat stranding bilaterally. This is probably related to aging. There is a small amount of fluid within the bladder. It appears normal. The prostate is mildly enlarged. No evidence of appendicitis. No free air. No free fluid. No dilated loops of bowel. No adenopathy. No aortic aneurysm. There is mild diverticulosis of the sigmoid colon. No evidence of diverticulitis. There is degenerative disk disease at multiple levels in the lower thoracic and lumbar spine. No other significant findings. [id number] [facility]
== END 2020-09-20 00:12 | disposition home or self-care (01) ==
LOC: LB.ED 21:21
DX: R10.13 Epigastric pain (principal); R10.11 Right upper quadrant pain; E87.6 Hypokalemia; K21.9 Gastro-esophageal reflux disease without esophagitis; E78.00 Pure hypercholesterolemia, unspecified; I10 Essential (primary) hypertension; Z88.1 Allergy status to other antibiotic agents; Z88.6 Allergy status to analgesic agent; Z88.5 Allergy status to narcotic agent; Z88.8 Allergy status to other drugs, medicaments and biological substances; Z88.0 Allergy status to penicillin; Z79.899 Other long term (current) drug therapy
CPT/HCPCS: 36415; 74176; 80053; 81001; 83690; 83880; 84484; 85025; 93005; 99284-25; A9270-GY; J7030

== ENCOUNTER 2020-09-20 05:31 | Emergency (ER) | payer MEDICARE ==
--- NOTE | 2020-09-20 06:03 | EDM.PDOC ---
ED HPI GENERAL MEDICAL PROBLEM - General Chief Complaint: Gastrointestinal Problem Stated Complaint: Abdominal pain Time Seen by Provider: 09/20/20 05:45 Source of Information: Reports: Patient, Family History Limitations: Reports: No Limitations - History of Present Illness INITIAL COMMENTS - FREE TEXT/NARRATIVE: patient returned to the ER due to abdominal pain.; Was seen in the ER earlier for the same reason. Blood tests and CT abd WNL. h/o gastritis - for which he is Tums and Maalox. Reports that he was doing well after he was discharged from the ER earlier,, but started to experience same symptoms later on. He also admits that upon arrival to the ER, he released some gas which resolved his symptoms - Related Data Allergies Allergy/AdvReac Type Severity Reaction Status Date / Time acetaminophen Allergy Cannot Verified 09/20/20 06:25 [From Darvocet-N] Remember ciprofloxacin Allergy Cannot Verified 09/20/20 06:25 Remember erythromycin base Allergy Cannot Verified 09/20/20 06:25 Remember morphine Allergy Cannot Verified 09/20/20 06:25 Remember naproxen [From Naprosyn] Allergy Cannot Verified 09/20/20 06:25 Remember Penicillins Allergy Cannot Verified 09/20/20 06:25 Remember propoxyphene Allergy Cannot Verified 09/20/20 06:25 [From Darvocet-N] Remember Home Meds: Home Meds Albuterol [Ventolin HFA] 2 puff IH Q6HR PRN 10/10/19 [History] Aspirin 81 mg PO BEDTIME 10/10/19 [History] Chlorthalidone 25 mg PO DAILY 10/10/19 [History] Diltiazem HCl [Diltiazem 24Hr Cd] 120 mg PO DAILY 10/10/19 [History] Docusate Sodium [Colace] 100 mg PO BID PRN 10/10/19 [History] Isosorbide Mononitrate [Isosorbide Mononitrate ER] 30 mg PO DAILY 10/10/19 [History] Omeprazole 40 mg PO DAILY 10/10/19 [History] Potassium Citrate [Potassium Citrate ER] 20 meq PO DAILY 10/10/19 [History] Simvastatin 20 mg PO BEDTIME 10/10/19 [History] Terazosin [Hytrin] 5 mg PO BEDTIME 10/10/19 [History] diphenhydrAMINE [Benadryl] 25 mg PO Q6H PRN 10/10/19 [History] hydrALAZINE [Apresoline] 10 mg PO Q8H 10/10/19 [History] metroNIDAZOLE [Flagyl] 500 mg PO Q12H #10 tab 09/20/20 [Rx] Past Medical History HEENT History: Reports: Hard of Hearing Cardiovascular History: Reports: High Cholesterol, Hypertension Other Cardiovascular History: single cardiac stent about 5 years ago Respiratory History: Reports: Asthma Gastrointestinal History: Reports: GERD Musculoskeletal History: Reports: Other (See Below) - Past Surgical History Musculoskeletal Surgical History: Reports: Knee Replacement Social & Family History - Family History Family Medical History: No Pertinent Family History - Caffeine Use Caffeine Use: Reports: Coffee ED ROS GENERAL - Review of Systems Review Of Systems: See Below Constitutional: Reports: No Symptoms HEENT: Reports: No Symptoms Respiratory: Reports: No Symptoms Cardiovascular: Reports: No Symptoms Endocrine: Reports: No Symptoms GI/Abdominal: Reports: Abdominal Pain ED EXAM, GI/ABD - Physical Exam Exam: See Below Exam Limited By: No Limitations General Appearance: Alert, WD/WN, No Apparent Distress Eyes: Bilateral: EOMI Neck: Normal Inspection Respiratory/Chest: No Respiratory Distress, Lungs Clear Cardiovascular: Normal Peripheral Pulses GI/Abdominal Exam: Normal Bowel Sounds, Soft, Non-Tender Extremities: Normal Inspection Neurological: Alert, Oriented, Normal Cognition, Normal Gait Psychiatric: Normal Affect Course - Vital Signs Last Recorded V/S: Last Vital Signs Temp Pulse 58 L 09/20/20 05:53 Resp 16 09/20/20 05:53 BP 146/76 H 09/20/20 05:53 Pulse Ox 100 09/20/20 05:53 - Orders/Labs/Meds Labs: Laboratory Tests 09/20/20 09/20/20 09/20/20 Range/Units 06:20 06:20 06:20 ESR 24 H (0-20) mm/hr Sodium 143 (136-145) mmol/L Potassium 3.4 L (3.5-5.1) mmol/L Chloride 105 (98-107) mmol/L Carbon Dioxide 28.2 (21.0-32.0) mmol/L Anion Gap 13.2 (5.0-15.0) mmol/L BUN 22 (8-26) mg/dL Creatinine 1.13 D (0.70-1.30) mg/dL Est Cr Clr Drug Dosing TNP Estimated GFR (MDRD) > 60 (>60) MLS/MIN BUN/Creatinine Ratio 19.5 (6-25) Glucose 113 H (74-100) mg/dL Calcium 7.9 L (8.5-10.1) mg/dL Phosphorus 1.8 L (2.5-4.9) mg/dL Magnesium 1.7 L (1.8-2.4) mg/dL Troponin I 0.017 (0.000-0.060) ng/mL C-Reactive Protein 4.8 H (0.0-3.0) mg/L SARS-CoV-2 RNA (ALYCIA) (NEGATIVE) 09/20/20 Range/Units 06:20 ESR (0-20) mm/hr Sodium (136-145) mmol/L Potassium (3.5-5.1) mmol/L Chloride (98-107) mmol/L Carbon Dioxide (21.0-32.0) mmol/L Anion Gap (5.0-15.0) mmol/L BUN (8-26) mg/dL Creatinine (0.70-1.30) mg/dL Est Cr Clr Drug Dosing Estimated GFR (MDRD) (>60) MLS/MIN BUN/Creatinine Ratio (6-25) Glucose (74-100) mg/dL Calcium (8.5-10.1) mg/dL Phosphorus (2.5-4.9) mg/dL Magnesium (1.8-2.4) mg/dL Troponin I (0.000-0.060) ng/mL C-Reactive Protein (0.0-3.0) mg/L SARS-CoV-2 RNA (ALYCIA) Negative (NEGATIVE) Meds: Medications Discontinued Medications Generic Name Dose Route Start Last Admin Trade Name Freq PRN Reason Stop Dose Admin Al Hydroxide/Mg Hydroxide 30 ml 09/20/20 06:08 09/20/20 06:59 Gi Cocktail Oral Solution 30 Ml PO 09/20/20 06:09 30 ml ONETIME ONE Administration Sodium Chloride 1,000 mls @ 500 mls/hr 09/20/20 06:15 09/20/20 06:06 Normal Saline IV 500 mls/hr ASDIRECTED MALIHA Administration Potassium Chloride 50 mls @ 50 mls/hr 09/20/20 07:00 09/20/20 06:58 Kcl In Water 10 Meq/50 Ml IV 09/20/20 07:59 50 mls/hr NOW ONE Administration Potassium Chloride Confirm 09/20/20 06:54 09/20/20 06:59 Kcl In Water 10 Meq/50 Ml Administered 09/20/20 06:55 Not Given Dose 50 mls @ as directed .ROUTE .STK-MED ONE Potassium Phosphate 20 mmole/ 256.6667 mls @ 85.556 mls/hr 09/20/20 08:45 Sodium Chloride IV ONETIME MALIHA Magnesium Oxide 400 mg 09/20/20 08:39 09/20/20 09:00 Magnesium Oxide 400 Mg Tab PO 09/20/20 08:40 400 mg ONETIME ONE Administration Ondansetron HCl Confirm 09/20/20 05:59 09/20/20 06:59 Ondansetron 4 Mg Tab.Dis Administered 09/20/20 06:00 Not Given Dose 4 mg .ROUTE .STK-MED ONE Ondansetron HCl 4 mg 09/20/20 05:51 09/20/20 06:06 Ondansetron 4 Mg Tab.Dis PO 09/20/20 05:52 4 mg ONETIME ONE Administration Potassium Chloride 10 meq 09/20/20 06:05 Potassium Chloride 40 Meq/20 Ml Sdv IV 09/20/20 06:06 NOW STA - Re-Assessments/Exams Free Text/Narrative Re-Assessment/Exam: GI cocktail was given - felt immediate relief labs were checked - significant for low potassium and phosphorous - those were replaced by IV and PO route. reports feeling much better - no more symptoms Departure - Departure Time of Disposition: 09:15 Disposition: Home, Self-Care 01 Condition: Good Clinical Impression: Hypokalemia Abdominal pain Qualifiers: Abdominal location: right upper quadrant Qualified Code(s): R10.11 - Right upper quadrant pain - Discharge Information *PRESCRIPTION DRUG MONITORING PROGRAM REVIEWED*: Not Applicable *COPY OF PRESCRIPTION DRUG MONITORING REPORT IN PATIENT EITAN: Not Applicable Referrals: PCP,None [Primary Care Provider] - Forms: ED Department Discharge Additional Instructions: Discharge instructions as given on previous visit. 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 Call with any questions. - Problem List & Annotations (1) GILMAR (acute kidney injury) SNOMED Code(s): 07894621, 54639465 Code(s): N17.9 - ACUTE KIDNEY FAILURE, UNSPECIFIED Status: Acute Priority: Low (2) Abdominal pain SNOMED Code(s): 25327836 Code(s): R10.9 - UNSPECIFIED ABDOMINAL PAIN Status: Acute Priority: Low Qualifiers: Abdominal location: right upper quadrant Qualified Code(s): R10.11 - Right upper quadrant pain (3) Hypokalemia SNOMED Code(s): 75840249 Code(s): E87.6 - HYPOKALEMIA Status: Acute Priority: Low - Problem List Review Problem List Initiated/Reviewed/Updated: Yes - Assessment/Plan Plan: - increase fluids intake - resume your PPI - take K and P04 supplements as prescribed - follow up with your PCP in 3-7 days - return in 3 days for labs and US abdomen
[2020-09-20] MEDS ORDERED: Potassium Chloride 40 MEQ/20 ML SDV IV STA (06:05)
[2020-09-20] MEDS: Sodium Chloride 0.9% 1,000 ML IV SCH (06:06)
[2020-09-20] MEDS: Ondansetron 4 MG Tab.DIS PO ONE (06:06)
[2020-09-20] MEDS: Potassium Chloride Riders 50 ML IV ONE (06:58)
[2020-09-20] MEDS: Potassium Chloride Riders 50 ML ONE (06:59)
[2020-09-20] MEDS: Ondansetron 4 MG Tab.DIS ONE (06:59)
[2020-09-20] MEDS: GI Cocktail Oral Solution 30 ML PO ONE (06:59)
[2020-09-20] MEDS ORDERED: Potassium Phosphates 20 MMOLE in Sodium Chloride 0.9% 250 ML IV SCH (08:45)
[2020-09-20] MEDS: Magnesium Oxide 400 MG Tab PO ONE (09:00)
== END 2020-09-20 09:48 | disposition home or self-care (01) ==
LOC: LB.ED 05:31
DX: R10.11 Right upper quadrant pain (principal); E87.6 Hypokalemia; E78.00 Pure hypercholesterolemia, unspecified; I10 Essential (primary) hypertension; K21.9 Gastro-esophageal reflux disease without esophagitis; Z79.82 Long term (current) use of aspirin; Z79.899 Other long term (current) drug therapy; Z88.0 Allergy status to penicillin; Z88.5 Allergy status to narcotic agent; Z88.1 Allergy status to other antibiotic agents; Z88.6 Allergy status to analgesic agent; Z20.822 Contact with and (suspected) exposure to COVID-19
CPT/HCPCS: 36415; 80048; 83735; 84100; 84484; 85651; 86140; 96365; 99284; A9270; J3480; J7030; U0002; 99283

== ENCOUNTER 2020-10-23 08:50 | Day surgery (SDC) | payer MEDICARE ==
[~2020-10-23 08:50] MED LIST: Metoclopramide 10 MG/2 ML SDV IV PRN
[2020-10-23] MEDS: Sodium Chloride 0.9% 1,000 ML IV SCH (09:29)
[2020-10-23] MEDS ORDERED: Midazolam 1 MG/ML 2 ML SDV ONE (10:45)
[2020-10-23] MEDS ORDERED: Propofol 200 MG/20 ML SDV ONE ×2 (10:45)
--- NOTE | 2020-10-23 19:05 | OR ---
DATE OF OPERATION: 10/23/2020 SURGEON: Justus Winn MD PREOPERATIVE DIAGNOSIS: Abdominal pain, change in bowel habits. POSTOPERATIVE DIAGNOSIS: Abdominal pain, change in bowel habits. PROCEDURE: EGD with biopsy and colonoscopy with biopsy. ANESTHESIA: MAC. ESTIMATED BLOOD LOSS: Minimal. COMPLICATIONS: None. INDICATION FOR THE PROCEDURE: The patient is a 65-year-old male, here today for EGD and colonoscopy. He complains of abdominal pains for the past 2 years, getting worse now. He is taking omeprazole, but it does not appear to help. He has had diverticulitis in the past, last episode about 10 years ago. He states history of ulcerative colitis, although unable to find further documentation in his chart. He is here today for EGD and colonoscopy. DESCRIPTION OF PROCEDURE: Informed consent was obtained with the patient. The patient was taken to the operating room and placed on table in left lateral decubitus position. Monitored anesthesia care was administered. Esophagogastroscope first advanced through the oral cavity and directed toward the duodenum. Duodenum was reached and appeared normal. Gastric antrum appeared normal. Cold forceps biopsy was taken for H pylori testing. Retroflexion performed in the stomach was also otherwise unremarkable. Esophagogastroscope was then slowly withdrawn. The GE junction was unremarkable. The remainder of the esophagus was unremarkable. The scope was then fully removed. We then turned our attention to his perineum. Digital rectal exam was performed and was normal. Colonoscope was then advanced through the anus and directed toward the cecum. Cecum was reached and identified by appendiceal orifice and ileocecal valve. Colonoscope was then slowly withdrawn. No polyps identified. He did have some mild what appeared to be inflammatory mucosal changes throughout the colon. Biopsy of this was taken for histology. Otherwise, no masses, no polyps. A few small diverticula were also noted in the sigmoid and descending colon. The rectum was also otherwise unremarkable. Colonoscope was then withdrawn. FINDINGS: We will follow up on H pylori testing as well as colonic mucosal biopsies. RECOMMENDATIONS: As above pending biopsy results. ORLIN/JOAN /[id number]
== END 2020-10-23 12:17 | disposition home or self-care (01) ==
LOC: LB.SDS 08:50
PROVIDERS: ATTEND Surgery
DX: K29.50 Unspecified chronic gastritis without bleeding (principal); K57.30 Diverticulosis of large intestine without perforation or abscess without bleeding; K52.9 Noninfective gastroenteritis and colitis, unspecified; I10 Essential (primary) hypertension; J45.909 Unspecified asthma, uncomplicated; Z87.19 Personal history of other diseases of the digestive system; Z88.0 Allergy status to penicillin; Z88.8 Allergy status to other drugs, medicaments and biological substances
CPT/HCPCS: J2250; J2704; J7030

== ENCOUNTER 2021-04-10 19:34 | Emergency (ER) | payer MEDICARE ==
[2021-04-10] MEDS ORDERED: predniSONE 10 MG Tab ONE (21:00)
[2021-04-10] MEDS ORDERED: Albuterol 0.083% 2.5 MG/3 ML Neb Soln ONE (21:00)
[2021-04-10] MEDS ORDERED: Azithromycin 250 MG Tab ONE (21:00)
--- NOTE | 2021-04-10 21:10 | EDM.PDOC ---
ED HPI GENERAL MEDICAL PROBLEM - General Chief Complaint: Respiratory Problem Stated Complaint: respiratory Time Seen by Provider: 04/10/21 20:40 Source of Information: Reports: Patient, RN Notes Reviewed History Limitations: Reports: No Limitations - History of Present Illness INITIAL COMMENTS - FREE TEXT/NARRATIVE: This patient presents to the emergency department for evaluation of respiratory illness. He states he has been sick for the last 3 weeks but it is gotten more worse in the last week. He has had increasing cough and difficulty breathing. He has not had a fever with this illness. He states his appetite is unchanged. He has some right ear pain and sore throat a couple days ago as well. He has been using his albuterol inhaler which he states does help for a short time but then he starts coughing again. He denies other concerns or complaints. - Related Data Allergies Allergy/AdvReac Type Severity Reaction Status Date / Time ciprofloxacin Allergy Severe Airway Verified 04/10/21 20:11 Tightness morphine Allergy Severe Airway Verified 04/10/21 20:11 Tightness Penicillins Allergy Severe Airway Verified 04/10/21 20:11 Tightness naproxen [From Naprosyn] Allergy Intermediate Swelling Verified 04/10/21 20:11 acetaminophen Allergy Cannot Verified 04/10/21 20:11 [From Darvocet-N] Remember Beta-Blockers Allergy Other Verified 04/10/21 20:11 (Beta-Adrenergic Bloc erythromycin base Allergy Cannot Verified 04/10/21 20:11 Remember lisinopril Allergy Cannot Verified 04/10/21 20:11 Remember propoxyphene Allergy Cannot Verified 04/10/21 20:11 [From Darvocet-N] Remember [id number]-[id number] Reductase AdvReac Mild Joint Pain Verified 04/10/21 20:11 Inhibitor [Qwdemgh-Mfl-Vkh Reductase Inhibitor] Home Meds: Home Meds Albuterol [Ventolin HFA] 2 puff IH Q6HR PRN 10/10/19 [History] Aspirin 81 mg PO BEDTIME 10/10/19 [History] Chlorthalidone 25 mg PO DAILY 10/10/19 [History] Isosorbide Mononitrate [Isosorbide Mononitrate ER] 30 mg PO DAILY 10/10/19 [History] Omeprazole 40 mg PO DAILY 10/10/19 [History] Potassium Citrate [Potassium Citrate ER] 20 meq PO BID 10/10/19 [History] Terazosin [Hytrin] 5 mg PO BEDTIME 10/10/19 [History] diphenhydrAMINE [Benadryl] 25 mg PO Q6H PRN 10/10/19 [History] hydrALAZINE [Apresoline] 20 mg PO BID 10/10/19 [History] Acetaminophen [Tylenol Arthritis] 650 mg PO BID 10/22/20 [History] Cetirizine [ZyrTEC] 1 tab PO ASDIRECTED PRN 10/22/20 [History] Nitroglycerin 0.4 mg SL ASDIRECTED PRN 10/22/20 [History] Past Medical History HEENT History: Reports: Hard of Hearing Other HEENT History: retinal occlusion Cardiovascular History: Reports: High Cholesterol, Hypertension Other Cardiovascular History: single cardiac stent about 5 years ago Respiratory History: Reports: Asthma Gastrointestinal History: Reports: GERD Other Gastrointestinal History: ulcerative colitis Other Genitourinary History: right kidney nodule Musculoskeletal History: Reports: Other (See Below) Neurological History: Reports: Concussion - Past Surgical History Musculoskeletal Surgical History: Reports: Knee Replacement Social & Family History - Family History Family Medical History: No Pertinent Family History Cardiac: Reports: Other (See Below) Other Cardiac Family History: enlarged heart Other Oncologic Family History: father of cancer - Caffeine Use Caffeine Use: Reports: Coffee ED ROS GENERAL - Review of Systems Review Of Systems: Comprehensive ROS is negative, except as noted in HPI. ED EXAM, GENERAL - Physical Exam Exam: See Below Exam Limited By: No Limitations General Appearance: Alert, No Apparent Distress Eye Exam: Bilateral Eye: Normal Inspection Ears: Normal External Exam Ear Exam: Right Ear: TM Dull, TM Red, TM Bulging, Left Ear: Canal Normal, TM normal Nose: Normal Inspection, Other (Moderate amount of thick drainage) Throat/Mouth: Normal Inspection, No Airway Compromise, Other (Posterior pharynx) Head: Atraumatic ( erythematous), Normocephalic Neck: Normal Inspection, Full Range of Motion Respiratory/Chest: No Respiratory Distress, Other (Chest symmetric with mild intercostal retractions. Expiratory wheezes in all chung.) Neurological: Alert, Oriented Psychiatric: Normal Affect Skin Exam: Warm, Dry, Intact Course - Orders/Labs/Meds Labs: Laboratory Tests 04/10/21 Range/Units 19:53 SARS-CoV-2 RNA (ALYCIA) Negative (NEGATIVE) - Re-Assessments/Exams Free Text/Narrative Re-Assessment/Exam: This patient presents to the emergency department for evaluation of cough and shortness of breath. He is also congested. History and clinical findings are most consistent with bronchitis. He does appear well and nontoxic. There is no evidence of respiratory distress. He has a normal oxygen saturation with normal work of breathing after the neb. Chest x-ray is not indicated considering there is no tachycardia and a respiratory rate of less than 24 and he is afebrile. He has no hypoxia. He did get 1 DuoNeb in the emergency department and he had improvement in his breath sounds and a resolution of the mild retractions. I will start him on Zithromax for right otitis and bronchitis, prednisone 40 mg a day, and nebs every 4-6 hours. I discussed using either the neb or the inhaler on a more regular basis in the next few days. Also discussed the need to seek immediate care for any difficulty breathing, chest pain, high fever, or any other new concerns. He should be seen by his primary care provider in a week if he is not better. The patient was stable at the time of discharge. 04/10/21 21:08 Departure - Departure Time of Disposition: 21:15 Disposition: Home, Self-Care 01 Condition: Fair Clinical Impression: Bronchitis, Otitis media - Discharge Information Instructions: Otitis Media, Adult, [id number], Acute Bronchitis, Adult, [id number]
== END 2021-04-10 21:10 | disposition home or self-care (01) ==
LOC: LB.ED 19:34
DX: J40 Bronchitis, not specified as acute or chronic (principal); H66.91 Otitis media, unspecified, right ear; E78.00 Pure hypercholesterolemia, unspecified; I10 Essential (primary) hypertension; K21.9 Gastro-esophageal reflux disease without esophagitis; Z95.5 Presence of coronary angioplasty implant and graft; Z88.0 Allergy status to penicillin; Z88.5 Allergy status to narcotic agent; Z88.1 Allergy status to other antibiotic agents; Z88.8 Allergy status to other drugs, medicaments and biological substances; Z79.82 Long term (current) use of aspirin; Z79.899 Other long term (current) drug therapy
CPT/HCPCS: 99285; A9270; J7512; U0002

== ENCOUNTER 2021-05-19 00:59 | Emergency (ER) | payer MEDICARE ==
[2021-05-19] MEDS: Dexamethasone 4 MG Tab PO ONE (01:53)
[2021-05-19] MEDS ORDERED: Albuterol/Ipratropium 3.0-0.5 MG/3 ML Neb Soln ONE (02:00)
== END 2021-05-19 02:00 | disposition home or self-care (01) ==
LOC: LB.ED 00:59
DX: U07.1 COVID-19 (principal); K21.9 Gastro-esophageal reflux disease without esophagitis; E78.00 Pure hypercholesterolemia, unspecified; I10 Essential (primary) hypertension; Z87.891 Personal history of nicotine dependence; Z88.5 Allergy status to narcotic agent; Z88.0 Allergy status to penicillin; Z88.1 Allergy status to other antibiotic agents; Z88.8 Allergy status to other drugs, medicaments and biological substances; Z79.82 Long term (current) use of aspirin; Z79.899 Other long term (current) drug therapy
CPT/HCPCS: 99284; J8540; J7620-GY

== ENCOUNTER 2021-07-22 16:06 | Emergency (ER) | payer MEDICARE ==
[2021-07-22] MEDS: Aspirin 81 MG Tab.Chew PO ONE (16:21)
[2021-07-22] MEDS: Nitroglycerin 0.4 MG Tab.SL SL ONE (16:41)
== END 2021-07-22 21:03 | disposition home or self-care (01) ==
LOC: LB.ED 16:06
DX: R07.89 Other chest pain (principal); E78.00 Pure hypercholesterolemia, unspecified; I10 Essential (primary) hypertension; K21.9 Gastro-esophageal reflux disease without esophagitis; I25.10 Atherosclerotic heart disease of native coronary artery without angina pectoris; Z88.5 Allergy status to narcotic agent; Z88.0 Allergy status to penicillin; Z88.1 Allergy status to other antibiotic agents; Z88.8 Allergy status to other drugs, medicaments and biological substances
CPT/HCPCS: 36415; 71250; 80053; 84484; 85025; 85610; 93005; 99285; A9270

== ENCOUNTER 2021-12-05 18:03 | Emergency (ER) | payer MEDICARE ==
[2021-12-05 19:15] LABS: ESTIMATED GFR 91 mL/min (>60)
== END 2021-12-05 19:29 | disposition home or self-care (01) ==
LOC: LB.ED 18:03
DX: B35.4 Tinea corporis (principal); E78.00 Pure hypercholesterolemia, unspecified; I10 Essential (primary) hypertension; K21.9 Gastro-esophageal reflux disease without esophagitis; Z88.5 Allergy status to narcotic agent; Z88.0 Allergy status to penicillin; Z88.1 Allergy status to other antibiotic agents; Z88.8 Allergy status to other drugs, medicaments and biological substances; Z79.82 Long term (current) use of aspirin; Z91.09 Other allergy status, other than to drugs and biological substances; Z20.822 Contact with and (suspected) exposure to COVID-19
CPT/HCPCS: 36415; 71046; 80048; 81003; 85025; 99282; 99283; U0002

== ENCOUNTER 2022-03-20 08:45 | Emergency (ER) | payer MEDICARE ==
[2022-03-20 09:50] LABS: ESTIMATED GFR 70 mL/min (>60)
[2022-03-20] MEDS: methylPREDNISolone Sodium Succinate 125 MG/2 ML SDV IM ONE (10:15)
== END 2022-03-20 10:30 | disposition home or self-care (01) ==
LOC: LB.ED 08:45
DX: K51.90 Ulcerative colitis, unspecified, without complications (principal); E78.00 Pure hypercholesterolemia, unspecified; I10 Essential (primary) hypertension; K21.9 Gastro-esophageal reflux disease without esophagitis; Z88.5 Allergy status to narcotic agent; Z88.0 Allergy status to penicillin; Z88.1 Allergy status to other antibiotic agents; Z88.8 Allergy status to other drugs, medicaments and biological substances; Z79.82 Long term (current) use of aspirin; Z79.02 Long term (current) use of antithrombotics/antiplatelets
CPT/HCPCS: 36415; 80053; 85025; 96372; 99284; J2930

== ENCOUNTER 2022-10-10 09:10 | Emergency (ER) | payer MEDICARE | END 2022-10-10 10:00 | disposition home or self-care (01) | LOC: LB.ED 09:10 | DX: R51.9 Headache, unspecified (principal); I10 Essential (primary) hypertension; Z88.1 Allergy status to other antibiotic agents; Z88.6 Allergy status to analgesic agent; Z88.0 Allergy status to penicillin; Z79.899 Other long term (current) drug therapy; Z79.82 Long term (current) use of aspirin | CPT/HCPCS: 70450; 99284 ==

== ENCOUNTER 2024-06-08 00:24 | Emergency (ER) | payer MEDICARE ==
[2024-06-08] MEDS: HYDROmorphone 1 MG/ML Syringe IVPUSH ONE (00:58)
[2024-06-08] MEDS: Ketorolac 15 MG/ML SDV IVPUSH SCH ×2 (01:02→09:06)
[2024-06-08] MEDS: Orphenadrine 60 MG/2 ML Inj IV ONE (01:05)
== END 2024-06-08 12:07 ==
LOC: EDUNIT# → LB.ED 00:24
DX: M25.551 Pain in right hip (principal); M79.661 Pain in right lower leg; Z96.641 Presence of right artificial hip joint; Z88.0 Allergy status to penicillin; Z88.1 Allergy status to other antibiotic agents; Z88.5 Allergy status to narcotic agent; Z88.8 Allergy status to other drugs, medicaments and biological substances; Z79.82 Long term (current) use of aspirin; Z79.899 Other long term (current) drug therapy
CPT/HCPCS: 73502-RT; 96374; 96375; 96376; 99285-25; A0425; A0429; J1171; J1885; J2360

== ENCOUNTER 2024-07-02 11:19 | Emergency (ER) | payer MEDICARE | END 2024-07-02 12:15 | disposition home or self-care (01) | LOC: LB.ED 11:19 | DX: M70.62 Trochanteric bursitis, left hip (principal); R20.2 Paresthesia of skin; I10 Essential (primary) hypertension; E78.00 Pure hypercholesterolemia, unspecified; Z95.5 Presence of coronary angioplasty implant and graft; Z87.891 Personal history of nicotine dependence; Z79.899 Other long term (current) drug therapy; Z79.82 Long term (current) use of aspirin; Z88.0 Allergy status to penicillin; Z88.1 Allergy status to other antibiotic agents; Z88.2 Allergy status to sulfonamides; Z88.5 Allergy status to narcotic agent; Z88.6 Allergy status to analgesic agent; Z88.8 Allergy status to other drugs, medicaments and biological substances | CPT/HCPCS: 99283 ==